=== PATIENT | male | born 1990 | race Caucasian/White ===

== ENCOUNTER 2017-08-17 19:43 | Emergency (ER) | payer SELFPAY ==
[2017-08-17 19:54] VITALS: BP 102/61
[2017-08-17] MEDS ORDERED: Ondansetron ODT TAB* 4 MG PO ONE (20:09)
--- NOTE | 2017-08-17 20:18 | UC ---
Mina Bates Gabriel, scribed for Keith Justice MD on 08/17/17 at 2009 . Abdominal Pain Male HPI - HPI Summary HPI Summary: This patient is a 27 year old M presenting to [facility] with a chief complaint of n /v/d since 1200. The patient rates the pain 1/10 in severity. Patient reports ABD pain. Patient denies fever. Patient is requesting medication for nausea. - History of Current Complaint Chief Complaint: UCGI Stated Complaint: NAUSEA, AND VOMITING Time Seen by Provider: 08/17/17 20:02 Hx Obtained From: Patient Onset/Duration: Lasting Hours - 8, Still Present Timing: Intermittent Episodes Lasting: Severity Initially: Moderate Severity Currently: Moderate Pain Intensity: 1 Pain Scale Used: 0-10 Numeric Location: Diffuse Radiates: No Associated Signs And Symptoms: Positive: Nausea, Vomiting, Diarrhea - Allergies/Home Medications Allergies/Adverse Reactions: Allergies Allergy/AdvReac Type Severity Reaction Status Date / Time No Known Allergies Allergy Verified 08/17/17 19:55 Home Medications: Home Medications Otc Anti-Nausea Med* PRN 08/17/17 [History] PMH/Surg Hx/FS Hx/Imm Hx Previously Healthy: Yes Other History Of: Negative For: Hepatitis B, Hepatitis C - Surgical History Surgical History: None - Family History Known Family History: Negative: Cardiac Disease, Hypertension, Diabetes, Renal Disease, Respiratory Disease, Seizure Disorder, Blood Disorder - Social History Lives: With Family Alcohol Use: Occasionally Substance Use Type: Marijuana Smoking Status (MU): Never Smoked Tobacco Review of Systems Constitutional: Negative - fever Gastrointestinal: Negative, Abdominal Pain, Vomiting, Nausea All Other Systems Reviewed And Are Negative: Yes Physical Exam Triage Information Reviewed: Yes Appearance: Well-Appearing, No Pain Distress Vital Signs: Initial Vital Signs Temp 97.9 F 08/17/17 19:51 Pulse 92 08/17/17 19:51 Resp 16 08/17/17 19:51 BP 102/61 08/17/17 19:51 Pulse Ox 100 08/17/17 19:51 Vital Signs Reviewed: Yes Eyes: Positive: Conjunctiva Clear ENT: Positive: Normal ENT inspection Dental Exam: Normal Respiratory: Positive: Lungs clear, Normal breath sounds Cardiovascular: Positive: RRR, No Murmur Abdomen Description: Positive: Nontender Musculoskeletal: Positive: Strength Intact, ROM Intact Neurological: Positive: Alert, Muscle Tone Normal Psychological: Positive: Age Appropriate Behavior Skin Exam: Normal Abd Pain Male Course/Dx - Course Course Of Treatment: 27 yr old with gastroenteritis; dc home on zofran. - Differential Dx/Clinical Impression Provider Diagnoses: gastroenteritis Discharge - Discharge Plan Condition: Good Disposition: HOME Prescriptions: Ondansetron ODT TAB* [Zofran 4 MG Odt TAB*] 4 mg PO Q8H PRN #14 tab.odt PRN Reason: Nausea Patient Education Materials: Gastroenteritis (ED) Referrals: [facility] [Outside] No Primary Care Phys,NOPCP [Primary Care Provider] - The documentation as recorded by the Mina carrera Gabriel accurately reflects the service I personally performed and the decisions made by Vinh matias Walter, MD.
== END 2017-08-17 20:20 | disposition home or self-care (01) ==
LOC: UCEAST 19:43
DX: K52.9 Noninfective gastroenteritis and colitis, unspecified (principal); F12.90 Cannabis use, unspecified, uncomplicated
CPT/HCPCS: 99202; G0463